=== PATIENT | male | born 1975 | race African-American/Black ===

== ENCOUNTER 2021-12-09 16:11 | Inpatient (IN) | payer OTHER ==
[~2021-12-09] VITALS: Ht 175.3 cm; Wt 96.7 kg
[2021-12-12 17:30] VITALS: BP 161/108
[2021-12-12] MEDS ORDERED: ACETAMINOPHEN 325 MG TABLET PO PRN (18:00)
[2021-12-12] MEDS ORDERED: MELATONIN 3 MG TABLET PO PRN (18:00)
[2021-12-12] MEDS ORDERED: DOCUSATE SODIUM 100 MG CAPSULE PO SCH (21:00)
[2021-12-12] MEDS ORDERED: SENNA 187 MG TABLET PO SCH (21:00)
[2021-12-12 21:14] VITALS: BP 149/102
[2021-12-12] MEDS: ATORVASTATIN CALCIUM 40 MG TABLET PO SCH (21:20)
[2021-12-12] MEDS: HEPARIN SODIUM,PORCINE 5,000 UNITS/ML VIAL SQ SCH (21:20)
[2021-12-12] MEDS: ETHYL ALCOHOL 62% ANTISEPTIC NASAL INHALANT 0.6 ML AMPUL NASAL SCH (21:20)
[2021-12-12] MEDS: LISINOPRIL 5 MG TABLET PO SCH (21:21)
[2021-12-13] VITALS (8 sets, daily range): BP systolic 141–197; BP diastolic 97–113
[2021-12-13] MEDS: FAMOTIDINE 20 MG TABLET PO SCH (06:09)
[2021-12-13] MEDS: ETHYL ALCOHOL 62% ANTISEPTIC NASAL INHALANT 0.6 ML AMPUL NASAL SCH ×2 (08:08→21:11)
[2021-12-13] MEDS: DOCUSATE SODIUM 250 MG CAPSULE PO SCH ×2 (08:09→21:11)
[2021-12-13] MEDS: ASPIRIN 325 MG TABLET PO SCH (08:09)
[2021-12-13] MEDS: HydrALAZINE HCL 25 MG TABLET PO PRN ×2 (08:09→23:35)
[2021-12-13] MEDS: AmLODIPine BESYLATE 10 MG TABLET PO SCH (08:09)
[2021-12-13] MEDS: HEPARIN SODIUM,PORCINE 5,000 UNITS/ML VIAL SQ SCH ×2 (08:10→21:12)
[2021-12-13 11:47] LABS: BASOPHILS % (AUTO) 0.7 % (0.0-2.0); EOSINOPHILS % (AUTO) 0.6 % (1.0-6.0); HEMATOCRIT 41.6 % (41-53); LYMPHOCYTES # (AUTO) 0.6 K/uL (1.0-4.8); LYMPHOCYTES % (AUTO) 9.4 % (22.0-44.0); MEAN CORPUSCULAR HEMOGLOBIN 27.6 pg (26.0-34.0); MEAN CORPUSCULAR HGB CONC 33.5 G/dL (31.0-37.0); MEAN CORPUSCULAR VOLUME 82 fL (80-100); MONOCYTES # (AUTO) 0.5 K/uL (0.1-1.0); MONOCYTES % (AUTO) 7.9 % (2.0-9.0); NEUTROPHILS # (AUTO) 5.1 K/uL (1.8-7.7); NEUTROPHILS % (AUTO) 81.4 % (40.0-70.0); PLATELET COUNT (AUTO) 188 K/uL (150-450); RED BLOOD CELL COUNT(AUTO) 5.05 MIL/uL (4.50-5.90); RED CELL DISTRIBUTION WIDTH 14.6 % (11.5-14.5)
[2021-12-13 12:01] LABS: ALANINE AMINOTRANSFERASE 72 U/L (12-78); ALBUMIN 3.5 g/dL (3.4-5.0); ALKALINE PHOSPHATASE 77 U/L (46-116); ANION GAP 5 mmol/L (8-16); ASPARTATE AMINOTRANSFERASE 47 U/L (15-37); BILIRUBIN,TOTAL 0.6 mg/dL (0.1-1.0); CALCIUM, TOTAL 9.2 mg/dL (8.8-10.5); CARBON DIOXIDE 31 mmol/L (22-29); CHLORIDE 101 mmol/L (98-107); CREATININE 1.13 mg/dL (0.60-1.30); GLOMERULAR FILTR. RATE CALC > 60 mL/min (>60); GLUCOSE,RANDOM 87 mg/dL (70-110); POTASSIUM 3.6 mmol/L (3.5-5.1); SODIUM SERUM 137 mmol/L (136-145); TOTAL PROTEIN, SERUM 7.6 g/dL (6.4-8.2); UREA NITROGEN, BLOOD 11 mg/dL (7-18)
[2021-12-13 12:43] LABS: AMPHET/METH SCREEN,URINE NEGATIVE (NEGATIVE); BARBITURATE SCREEN, URINE NEGATIVE (NEGATIVE); BENZODIAZEPINES SCREEN,URINE NEGATIVE (NEGATIVE); CANNABINOID SCREEN,URINE NEGATIVE (NEGATIVE); COCAINE SCREEN,URINE NEGATIVE (NEGATIVE); METHADONE SCREEN, URINE NEGATIVE (NEGATIVE); OPIATE SCREEN,URINE NEGATIVE (NEGATIVE); PHENCYCLIDINE SCREEN,URINE NEGATIVE (NEGATIVE)
[2021-12-13] MEDS: ATORVASTATIN CALCIUM 40 MG TABLET PO SCH (21:11)
[2021-12-13] MEDS: LISINOPRIL 5 MG TABLET PO SCH (21:11)
[2021-12-13] MEDS: SENNA 187 MG TABLET PO SCH (21:12)
[2021-12-14] VITALS (7 sets, daily range): BP systolic 136–161; BP diastolic 78–142
[2021-12-14] MEDS: FAMOTIDINE 20 MG TABLET PO SCH (05:50)
[2021-12-14] MEDS: ETHYL ALCOHOL 62% ANTISEPTIC NASAL INHALANT 0.6 ML AMPUL NASAL SCH ×2 (08:21→20:16)
[2021-12-14] MEDS: HydrALAZINE HCL 25 MG TABLET PO PRN ×2 (08:22→16:23)
[2021-12-14] MEDS: ASPIRIN 325 MG TABLET PO SCH (08:22)
[2021-12-14] MEDS: AmLODIPine BESYLATE 10 MG TABLET PO SCH (08:22)
[2021-12-14] MEDS: DOCUSATE SODIUM 250 MG CAPSULE PO SCH ×2 (08:23→20:15)
[2021-12-14] MEDS: HEPARIN SODIUM,PORCINE 5,000 UNITS/ML VIAL SQ SCH ×2 (08:23→20:15)
[2021-12-14] MEDS: LISINOPRIL 5 MG TABLET PO SCH (20:15)
[2021-12-14] MEDS: SENNA 187 MG TABLET PO SCH (20:15)
[2021-12-14] MEDS: ATORVASTATIN CALCIUM 40 MG TABLET PO SCH (20:15)
[2021-12-15 00:01] VITALS: BP 153/98
[2021-12-15] MEDS: FAMOTIDINE 20 MG TABLET PO SCH (06:11)
[2021-12-15 08:00] VITALS: BP 146/98
[2021-12-15] MEDS: ETHYL ALCOHOL 62% ANTISEPTIC NASAL INHALANT 0.6 ML AMPUL NASAL SCH ×2 (08:01→20:14)
[2021-12-15] MEDS: ASPIRIN 325 MG TABLET PO SCH (08:01)
[2021-12-15] MEDS: AmLODIPine BESYLATE 10 MG TABLET PO SCH (08:01)
[2021-12-15] MEDS: HEPARIN SODIUM,PORCINE 5,000 UNITS/ML VIAL SQ SCH ×2 (08:02→20:15)
[2021-12-15] MEDS: DOCUSATE SODIUM 250 MG CAPSULE PO SCH ×3 (08:04→20:15)
[2021-12-15 15:54] VITALS: BP 139/94
[2021-12-15 20:15] VITALS: BP 156/93
[2021-12-15] MEDS: SENNA 187 MG TABLET PO SCH (20:15)
[2021-12-15] MEDS: ATORVASTATIN CALCIUM 40 MG TABLET PO SCH (20:15)
[2021-12-15] MEDS: LISINOPRIL 5 MG TABLET PO SCH (20:15)
[2021-12-16 00:01] VITALS: BP 148/96
[2021-12-16] MEDS: FAMOTIDINE 20 MG TABLET PO SCH (06:06)
[2021-12-16] MEDS: HEPARIN SODIUM,PORCINE 5,000 UNITS/ML VIAL SQ SCH ×2 (07:47→20:40)
[2021-12-16] MEDS: AmLODIPine BESYLATE 10 MG TABLET PO SCH (07:47)
[2021-12-16] MEDS: DOCUSATE SODIUM 250 MG CAPSULE PO SCH ×2 (07:47→20:39)
[2021-12-16] MEDS: ETHYL ALCOHOL 62% ANTISEPTIC NASAL INHALANT 0.6 ML AMPUL NASAL SCH ×2 (07:47→20:38)
[2021-12-16] MEDS: ASPIRIN 325 MG TABLET PO SCH (07:48)
[2021-12-16 08:00] VITALS: BP 143/99
[2021-12-16 16:10] VITALS: BP 139/94
[2021-12-16 20:36] VITALS: BP 147/97
[2021-12-16] MEDS: ATORVASTATIN CALCIUM 40 MG TABLET PO SCH (20:39)
[2021-12-16] MEDS: LISINOPRIL 10 MG TABLET PO SCH (20:39)
[2021-12-16] MEDS: SENNA 187 MG TABLET PO SCH (20:39)
[2021-12-17 00:34] VITALS: BP 148/93
[2021-12-17] MEDS: FAMOTIDINE 20 MG TABLET PO SCH (06:42)
[2021-12-17] MEDS: ASPIRIN 325 MG TABLET PO SCH (08:12)
[2021-12-17] MEDS: HEPARIN SODIUM,PORCINE 5,000 UNITS/ML VIAL SQ SCH ×2 (08:13→21:15)
[2021-12-17] MEDS: ETHYL ALCOHOL 62% ANTISEPTIC NASAL INHALANT 0.6 ML AMPUL NASAL SCH ×2 (08:13→21:14)
[2021-12-17] MEDS: DOCUSATE SODIUM 250 MG CAPSULE PO SCH ×2 (08:13→21:14)
[2021-12-17] MEDS: AmLODIPine BESYLATE 10 MG TABLET PO SCH (08:13)
[2021-12-17 09:52] VITALS: BP 131/86
[2021-12-17 16:30] VITALS: BP 138/85
[2021-12-17 21:00] VITALS: BP 142/88
[2021-12-17] MEDS: LISINOPRIL 10 MG TABLET PO SCH (21:14)
[2021-12-17] MEDS: SENNA 187 MG TABLET PO SCH (21:14)
[2021-12-17] MEDS: ATORVASTATIN CALCIUM 40 MG TABLET PO SCH (21:14)
[2021-12-18] VITALS: BP 149/103
[2021-12-18] MEDS: FAMOTIDINE 20 MG TABLET PO SCH (06:10)
[2021-12-18 08:10] VITALS: BP 144/94
[2021-12-18] MEDS: AmLODIPine BESYLATE 10 MG TABLET PO SCH (08:21)
[2021-12-18] MEDS: DOCUSATE SODIUM 250 MG CAPSULE PO SCH ×2 (08:21→20:28)
[2021-12-18] MEDS: ASPIRIN 325 MG TABLET PO SCH (08:21)
[2021-12-18] MEDS: HEPARIN SODIUM,PORCINE 5,000 UNITS/ML VIAL SQ SCH ×2 (08:21→20:27)
[2021-12-18] MEDS: ETHYL ALCOHOL 62% ANTISEPTIC NASAL INHALANT 0.6 ML AMPUL NASAL SCH ×2 (08:21→20:27)
[2021-12-18 16:03] VITALS: BP 134/94
[2021-12-18] MEDS: SENNA 187 MG TABLET PO SCH (20:27)
[2021-12-18] MEDS: ATORVASTATIN CALCIUM 40 MG TABLET PO SCH (20:27)
[2021-12-18] MEDS: LISINOPRIL 10 MG TABLET PO SCH (20:27)
[2021-12-18 20:28] VITALS: BP 149/91
[2021-12-19 02:54] VITALS: BP 133/90
[2021-12-19] MEDS: FAMOTIDINE 20 MG TABLET PO SCH (05:59)
[2021-12-19 08:10] VITALS: BP 142/95
[2021-12-19] MEDS: AmLODIPine BESYLATE 10 MG TABLET PO SCH (08:26)
[2021-12-19] MEDS: HEPARIN SODIUM,PORCINE 5,000 UNITS/ML VIAL SQ SCH ×2 (08:26→20:41)
[2021-12-19] MEDS: ASPIRIN 325 MG TABLET PO SCH (08:26)
[2021-12-19] MEDS: DOCUSATE SODIUM 250 MG CAPSULE PO SCH ×2 (08:30→20:41)
[2021-12-19] MEDS: ETHYL ALCOHOL 62% ANTISEPTIC NASAL INHALANT 0.6 ML AMPUL NASAL SCH ×2 (08:30→20:41)
[2021-12-19 15:48] VITALS: BP 142/102
[2021-12-19] MEDS: SENNA 187 MG TABLET PO SCH (20:41)
[2021-12-19] MEDS: ATORVASTATIN CALCIUM 40 MG TABLET PO SCH (20:41)
[2021-12-19] MEDS: LISINOPRIL 10 MG TABLET PO SCH (20:42)
[2021-12-19 20:45] VITALS: BP 164/99
[2021-12-20 04:04] VITALS: BP 128/100
[2021-12-20] MEDS: FAMOTIDINE 20 MG TABLET PO SCH (06:01)
[2021-12-20 08:03] VITALS: BP 131/91
[2021-12-20] MEDS: ASPIRIN 325 MG TABLET PO SCH (08:13)
[2021-12-20] MEDS: AmLODIPine BESYLATE 10 MG TABLET PO SCH (08:14)
[2021-12-20] MEDS: DOCUSATE SODIUM 250 MG CAPSULE PO SCH ×2 (08:14→20:13)
[2021-12-20] MEDS: ETHYL ALCOHOL 62% ANTISEPTIC NASAL INHALANT 0.6 ML AMPUL NASAL SCH ×2 (08:15→20:12)
[2021-12-20] MEDS: HEPARIN SODIUM,PORCINE 5,000 UNITS/ML VIAL SQ SCH ×2 (08:15→20:12)
[2021-12-20 16:35] VITALS: BP 136/90
[2021-12-20 20:10] VITALS: BP 141/88
[2021-12-20] MEDS: LISINOPRIL 10 MG TABLET PO SCH (20:12)
[2021-12-20] MEDS: ATORVASTATIN CALCIUM 40 MG TABLET PO SCH (20:12)
[2021-12-20] MEDS: SENNA 187 MG TABLET PO SCH (20:13)
[2021-12-21] VITALS: BP 145/85
[2021-12-21] MEDS ORDERED: AMLO-258 PO (04:37)
[2021-12-21] MEDS ORDERED: LISI-893 PO (04:37)
[2021-12-21] MEDS ORDERED: ASPI-989 PO (04:37)
[2021-12-21] MEDS ORDERED: FAMO20 PO (04:37)
[2021-12-21] MEDS ORDERED: ATOR40TA28 PO (04:37)
[2021-12-21] MEDS: FAMOTIDINE 20 MG TABLET PO SCH (06:06)
[2021-12-21] MEDS: ASPIRIN 325 MG TABLET PO SCH (07:57)
[2021-12-21] MEDS: AmLODIPine BESYLATE 10 MG TABLET PO SCH (07:57)
[2021-12-21] MEDS: ETHYL ALCOHOL 62% ANTISEPTIC NASAL INHALANT 0.6 ML AMPUL NASAL SCH ×2 (07:58→20:12)
[2021-12-21] MEDS: HEPARIN SODIUM,PORCINE 5,000 UNITS/ML VIAL SQ SCH ×2 (07:58→20:11)
[2021-12-21] MEDS: DOCUSATE SODIUM 250 MG CAPSULE PO SCH ×2 (08:04→20:12)
[2021-12-21 08:52] VITALS: BP 150/118
[2021-12-21 09:48] VITALS: BP 117/87
[2021-12-21 16:35] VITALS: BP 136/88
[2021-12-21] MEDS: LISINOPRIL 10 MG TABLET PO SCH (20:11)
[2021-12-21] MEDS: SENNA 187 MG TABLET PO SCH (20:11)
[2021-12-21] MEDS: ATORVASTATIN CALCIUM 40 MG TABLET PO SCH (20:11)
[2021-12-21 20:14] VITALS: BP 140/81
[2021-12-22 00:05] VITALS: BP 131/87
[2021-12-22] MEDS: FAMOTIDINE 20 MG TABLET PO SCH (06:11)
[2021-12-22] MEDS: DOCUSATE SODIUM 250 MG CAPSULE PO SCH ×2 (09:00→20:01)
[2021-12-22] MEDS: HEPARIN SODIUM,PORCINE 5,000 UNITS/ML VIAL SQ SCH ×2 (09:13→20:04)
[2021-12-22] MEDS: AmLODIPine BESYLATE 10 MG TABLET PO SCH (09:13)
[2021-12-22] MEDS: ASPIRIN 325 MG TABLET PO SCH (09:14)
[2021-12-22] MEDS: ETHYL ALCOHOL 62% ANTISEPTIC NASAL INHALANT 0.6 ML AMPUL NASAL SCH ×2 (09:14→20:00)
[2021-12-22 09:30] VITALS: BP 162/97
[2021-12-22 10:01] VITALS: BP 140/90
[2021-12-22 16:30] VITALS: BP 128/80
[2021-12-22 20:00] VITALS: BP 132/85
[2021-12-22] MEDS: LISINOPRIL 10 MG TABLET PO SCH (20:00)
[2021-12-22] MEDS: ATORVASTATIN CALCIUM 40 MG TABLET PO SCH (20:00)
[2021-12-22] MEDS: SENNA 187 MG TABLET PO SCH (20:01)
[2021-12-23 00:17] VITALS: BP 146/95
[2021-12-23] MEDS: FAMOTIDINE 20 MG TABLET PO SCH (05:44)
[2021-12-23] MEDS: ETHYL ALCOHOL 62% ANTISEPTIC NASAL INHALANT 0.6 ML AMPUL NASAL SCH ×2 (08:12→20:55)
[2021-12-23] MEDS: ASPIRIN 325 MG TABLET PO SCH (08:12)
[2021-12-23] MEDS: AmLODIPine BESYLATE 10 MG TABLET PO SCH (08:13)
[2021-12-23] MEDS: HEPARIN SODIUM,PORCINE 5,000 UNITS/ML VIAL SQ SCH ×2 (08:13→20:54)
[2021-12-23] MEDS: DOCUSATE SODIUM 250 MG CAPSULE PO SCH ×2 (08:20→20:55)
[2021-12-23 08:45] VITALS: BP 144/87
[2021-12-23 16:15] VITALS: BP 160/94
[2021-12-23 20:53] VITALS: BP 150/100
[2021-12-23] MEDS: SENNA 187 MG TABLET PO SCH (20:55)
[2021-12-23] MEDS: ATORVASTATIN CALCIUM 40 MG TABLET PO SCH (20:55)
[2021-12-23] MEDS: LISINOPRIL 10 MG TABLET PO SCH (20:55)
[2021-12-24 01:00] VITALS: BP 146/80
[2021-12-24] MEDS: FAMOTIDINE 20 MG TABLET PO SCH (05:47)
[2021-12-24 07:54] VITALS: BP 138/62
[2021-12-24] MEDS: ASPIRIN 325 MG TABLET PO SCH (08:41)
[2021-12-24] MEDS: AmLODIPine BESYLATE 10 MG TABLET PO SCH (08:42)
[2021-12-24] MEDS: ETHYL ALCOHOL 62% ANTISEPTIC NASAL INHALANT 0.6 ML AMPUL NASAL SCH ×2 (08:42→19:50)
[2021-12-24] MEDS: HEPARIN SODIUM,PORCINE 5,000 UNITS/ML VIAL SQ SCH ×2 (08:42→19:51)
[2021-12-24] MEDS: DOCUSATE SODIUM 250 MG CAPSULE PO SCH ×2 (08:42→19:50)
[2021-12-24] MEDS ORDERED: LISI-893 PO (10:41)
[2021-12-24] MEDS ORDERED: ASPI-1026 PO (10:41)
[2021-12-24] MEDS ORDERED: AMLO-258 PO (10:41)
[2021-12-24] MEDS ORDERED: FAMO20 PO (10:41)
[2021-12-24] MEDS ORDERED: DOCU-350 PO (10:41)
[2021-12-24] MEDS ORDERED: ATOR40TA71 PO (10:41)
[2021-12-24 16:30] VITALS: BP 132/64
[2021-12-24] MEDS: ATORVASTATIN CALCIUM 40 MG TABLET PO SCH (19:50)
[2021-12-24] MEDS: LISINOPRIL 10 MG TABLET PO SCH (19:50)
[2021-12-24] MEDS: SENNA 187 MG TABLET PO SCH (19:51)
[2021-12-25 01:33] VITALS: BP 139/95
[2021-12-25] MEDS: FAMOTIDINE 20 MG TABLET PO SCH (05:44)
[2021-12-25 08:15] VITALS: BP 133/89
[2021-12-25] MEDS: DOCUSATE SODIUM 250 MG CAPSULE PO SCH (08:59)
[2021-12-25] MEDS: ETHYL ALCOHOL 62% ANTISEPTIC NASAL INHALANT 0.6 ML AMPUL NASAL SCH (08:59)
[2021-12-25] MEDS: ASPIRIN 325 MG TABLET PO SCH (09:00)
[2021-12-25] MEDS: HEPARIN SODIUM,PORCINE 5,000 UNITS/ML VIAL SQ SCH (09:00)
[2021-12-25] MEDS: AmLODIPine BESYLATE 10 MG TABLET PO SCH (09:00)
== END 2021-12-25 12:45 | disposition home health service (06) | DRG 58 ==
LOC: 2WR 12-12 17:15
PROVIDERS: ADMIT Physical Medicine & Rehabilitation; ATTEND Physical Medicine & Rehabilitation
DX: G81.94 Hemiplegia, unspecified affecting left nondominant side (principal); I63.9 Cerebral infarction, unspecified; N17.9 Acute kidney failure, unspecified; G47.33 Obstructive sleep apnea (adult) (pediatric); F15.10 Other stimulant abuse, uncomplicated; G47.00 Insomnia, unspecified; K59.00 Constipation, unspecified; R41.89 Other symptoms and signs involving cognitive functions and awareness; R47.1 Dysarthria and anarthria; D64.9 Anemia, unspecified; N31.9 Neuromuscular dysfunction of bladder, unspecified; N39.498 Other specified urinary incontinence; N18.9 Chronic kidney disease, unspecified; I12.9 Hypertensive chronic kidney disease with stage 1 through stage 4 chronic kidney disease, or unspecified chronic kidney disease; I24.8 Other forms of acute ischemic heart disease; R13.10 Dysphagia, unspecified; Z91.19 Patient's noncompliance with other medical treatment and regimen; Z79.899 Other long term (current) drug therapy; Z79.82 Long term (current) use of aspirin
CPT/HCPCS: 74230; 80053; 80307; 85025; 87081; 92507; 92526; 92610; 92611; 94660; 97110; 97112; 97116; 97166; 97530; 97535; 99366; J1644